=== PATIENT | female | born 1995 | race Caucasian/White ===

== ENCOUNTER 2018-09-06 02:58 | Emergency (ER) | payer SELFPAY ==
[2018-09-06] MEDS ORDERED: ALBUTEROL SO4 2.5/IPRATROPIUM 0.5 INH SOL 3 ML VIAL.NEB. NEB ONE ×4 (03:14→03:47)
[2018-09-06] MEDS ORDERED: methylPREDNISolone NA SUCC 125 MG/2 ML VIAL IVPB ONE (03:16)
[2018-09-06 03:31] VITALS: BP 127/79; PULSE 102; TEMP 98.3; BMI 26.2
--- NOTE | 2018-09-06 03:36 | PDOC ---
History of Present Illness - General Chief Complaint: Asthma Stated Complaint: ASTHMA,COUGHING,CHEST BURNING Time Seen by Provider: 09/06/18 03:14 History Source: Patient Exam Limitations: No Limitations - History of Present Illness Initial Comments: 23 yo F w a pmh of asthma presents to the ED very short of breath. She states she is having an asthma exacerbation because this is what it always feels like. She states she has been sneezing alot over the past two days and her asthma has become intolerable. She has been having difficulty breathing and shortness of breath all month because she ran out of many of her asthma medications. She usually takes advair and an inhaler which both ran out and she has not been able to refill because she does not have insurance right now. - Patient thinks she was intubated as a child but has never been to the ICU for her asthma - She endorses chest tightness. Denies abdominal pain, back pain, dysuria, frequency, urgency. PCP: None Allergies: Pollen, animal fur Social Hx: Recreational alcohol. Denies smoking anything or illicit drug usage. Past History - Past Medical History Allergies/Adverse Reactions: Allergies Allergy/AdvReac Type Severity Reaction Status Date / Time No Known Allergies Allergy Verified 09/06/18 03:09 Home Medications: Ambulatory Orders Albuterol 0.083% Nebulizer Myrtle [Ventolin 0.083%] 1 neb NEB QID PRN 03/19/12 Albuterol Sulfate Inhaler - [Ventolin HFA Inhaler -] 2 inh IH Q6H #1 inh predniSONE [Deltasone -] 40 mg PO DAILY #7 tablet 06/10/14 Albuterol 0.083% Nebulizer Myrtle [Ventolin 0.083% Nebulizer Soln -] 1 neb NEB Q4H PRN #60 vial 09/06/18 Albuterol Sulfate Inhaler - [Ventolin Hfa Inhaler -] 1 puff IH QID #1 inhaler Montelukast Sodium [Singulair] 10 mg PO DAILY #60 tablet 09/06/18 Prednisone [Deltasone] 20 mg PO BID #10 tablet 09/06/18 Anemia: No Asthma: Yes Cancer: No Cardiac Disorders: No CVA: No COPD: No CHF: No Dementia: No Diabetes: No GI Disorders: No Disorders: No HTN: No Hypercholesterolemia: No Liver Disease: No Seizures: No Thyroid Disease: Yes - Surgical History Abdominal Surgery: No Appendectomy: No Cardiac Surgery: No Cholecystectomy: No Lung Surgery: No Neurologic Surgery: No Orthopedic Surgery: No - Immunization History Immunization Up to Date: Yes - Suicide/Smoking/Psychosocial Hx Smoking Status: No Smoking History: Never smoked Years of Tobacco Use: 0 Have you smoked in the past 12 months: No Number of Cigarettes Smoked Daily: 0 Cigars Per Day: 0 Information on smoking cessation initiated: No Hx Alcohol Use: No Drug/Substance Use Hx: No Substance Use Type: None Hx Substance Use Treatment: No Review of Systems - Review of Systems Able to Perform ROS?: Yes Comments:: CONSTITUTIONAL: Absent: fever, no chills, no fatigue EYES: Absent: visual changes ENT: Absent: ear pain, no sore throat CARDIOVASCULAR: Present: Chest tightness Absent: chest pain, no palpitations RESPIRATORY: Present: cough, no SOB GI: Absent: abdominal pain, no nausea, no vomiting, no constipation, no diarrhea GENITOURINARY: Absent: dysuria, no frequency, no hematuria MUSKULOSKELETAL: Absent: back pain, no arthralgia, no myalgia SKIN: Absent: rash NEURO: Absent: headache *Physical Exam - Vital Signs Last Vital Signs Temp Pulse Resp BP Pulse Ox 98.3 F 102 H 18 127/79 98 09/06/18 03:05 09/06/18 03:05 09/06/18 03:05 09/06/18 03:05 09/06/18 03:05 - Physical Exam Comments: GENERAL: Well-appearing, well-nourished. mild distress. HEENT: Normocephalic, atraumatic. PERRL, EOM intact. CARDIOVASCULAR: Normal S1, S2. Tachycardic rate and regular rhythm. PULMONARY: Diffuse expiratory wheezes bilaterally. ABDOMEN: Soft, non-distended, non-tender. EXTREMITIES: Normal ROM in all four extremities. No gross deformities. SKIN: Warm, dry. No rash NEUROLOGICAL: No focal neurological deficits. Moderate Sedation - Procedure Monitoring Vital Signs: Procedure Monitoring Vital Signs Temperature 98.3 F 09/06/18 03:05 Pulse Rate 102 H 09/06/18 03:05 Respiratory Rate 18 09/06/18 03:05 Blood Pressure 127/79 09/06/18 03:05 O2 Sat by Pulse Oximetry (%) 98 09/06/18 03:05 ED Treatment Course - LABORATORY CBC & Chemistry Diagram: 09/06/18 03:40 09/06/18 03:40 - RADIOLOGY Radiology Studies Ordered: Category Date Time Status CHEST PA & LAT [RAD] Stat Radiology 09/06/18 03:17 Ordered Medical Decision Making - Medical Decision Making 23 yo F w a pmh of asthma presents to the ED very short of breath. She states she is having an asthma exacerbation because this is what it always feels like. DDx IBNLT: Asthma exacerbation, URI, PNA, ACS. Plan: Cbc, Cmp, duonebs, solumedrol, cxr, EKG, oxygen, peak flow, re-assess. Patient feels significantly better after steroids and nebs. Breath sounds are no CTAB Will DC patient with prescriptions for steroids, albuterol, ventolin, and singulair. *DC/Admit/Observation/Transfer Diagnosis at time of Disposition: Asthma exacerbation - Discharge Dispostion Disposition: HOME Condition at time of disposition: Improved Decision to Admit order: No - Prescriptions Prescriptions: Albuterol 0.083% Nebulizer Myrtle [Ventolin 0.083% Nebulizer Soln -] 1 neb NEB Q4H PRN #60 vial PRN Reason: Wheezing Albuterol Sulfate Inhaler - [Ventolin Hfa Inhaler -] 1 puff IH QID #1 inhaler Montelukast Sodium [Singulair] 10 mg PO DAILY #60 tablet Prednisone [Deltasone] 20 mg PO BID #10 tablet - Referrals Referrals: [facility] [place] [facility] [Provider Group] - Patient Instructions Printed Discharge Instructions: Asthma -- Adult Additional Instructions: You came into the ER with shortness of breath and difficulty breathing. You were experiencing an asthma exacerbation which was likely triggered by an upper respiratory infection. You felt better after getting nebulizers and steroids. We are sending steroids, albuterol, ventolin, and singulair to your [facility] pharmacy on [facility]. 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 Come back to the ER if your breathing becomes difficult you have severe chest pain, shortness of breath, or any other new or worsening concerns. Thank you for coming to the [facility] ER. We hope you feel better soon! Print Language: ITALIAN - Post Discharge Activity Forms/Work/School Notes: Back to Work
[2018-09-06] MEDS ORDERED: methylPREDNISolone NA SUCC 125 MG/2 ML VIAL ONE (03:44)
[2018-09-06 03:50] LABS: BASO % 1.1 % (0-2.0); EOS % 7.1 % (0-4.5); HEMOGLOBIN 13.2 GM/dL (10.7-15.3); LYMPH % 26.6 % (8-40); MCH 30.1 pg (25.7-33.7); MCHC 34.8 g/dl (32.0-36.0); MEAN CELL VOLUME 86.7 fl (80-96); MEAN PLT VOLUME 8.2 fl (7.5-11.1); MONO % 5.1 % (3.8-10.2); NEUT % 60.1 % (42.8-82.8); PLATELET COUNT 321 K/MM3 (134-434); RBC 4.38 M/mm3 (3.60-5.2); RDW 13.5 % (11.6-15.6); WHITE BLOOD COUNT 8.6 K/mm3 (4.0-10.0)
[2018-09-06 04:32] LABS: ALBUMIN 3.8 g/dl (3.4-5.0); ALK PHOS 67 U/L (45-117); ANION GAP 8 MMOL/L (8-16); BILIRUBIN,TOTAL 0.2 mg/dL (0.2-1); BLOOD UREA NITROGEN 9 mg/dL (7-18); CALCIUM 8.5 mg/dL (8.5-10.1); CHLORIDE 108 mmol/L (98-107); CO2 25 mmol/L (21-32); CREATININE 0.7 mg/dL (0.55-1.3); GLUCOSE,RANDOM 95 mg/dL (74-106); POTASSIUM 3.9 mmol/L (3.5-5.1); SGOT/AST 27 U/L (15-37); SGPT/ALT 25 U/L (13-61); SODIUM 141 mmol/L (136-145)
--- NOTE | 2018-09-06 05:07 | PDOC ---
Attending Attestation - Resident Resident Name: Christopher Thompson - ED Attending Attestation I have performed the following: I have examined & evaluated the patient, The case was reviewed & discussed with the resident, I agree w/resident's findings & plan, Exceptions are as noted - HPI HPI: 09/06/18 05:04 23 yo F wit ho asthma here with co wheezing sob. has had worsening sxs this month since she ran out of her medication one month ago. was on advair, singulair albuterol, and steroids usually on hand at home. no h/o intubation that she can remember, possible as a child. no f/c no known trigger. no f/c cough chronic. no recent icu, but has been in ed mulitlple time for asthma. - Physicial Exam PE: 09/06/18 05:06 awake alert lungs clear bilaterally normal effort. no retractions. abd soft nt nd. ext wwp no edema. no rash, skin warm and dry. - Medical Decision Making 09/06/18 05:06 differential asthma exacerbation, plan nebs steroids, reassess.
== END 2018-09-06 05:38 | disposition home or self-care (01) ==
LOC: JER 02:58
PROC: 3E0F7GC Introduction of Other Therapeutic Substance into Respiratory Tract, Via Natural or Artificial Opening (ICD-10-PCS; principal; 2018-09-06)
PROC: 3E033GC Introduction of Other Therapeutic Substance into Peripheral Vein, Percutaneous Approach (ICD-10-PCS; 2018-09-06)
DX: J45.901 Unspecified asthma with (acute) exacerbation (principal)
CPT/HCPCS: 36415; 80053; 85025; 99282-25

== ENCOUNTER 2019-09-10 17:34 | Emergency (ER) | payer OTHER ==
[2019-09-10 17:55] VITALS: BP 125/54; PULSE 85; TEMP 97.8; BMI 30.2
[2019-09-10] MEDS ORDERED: KETOROLAC TROMETHAMINE 60 MG/2 ML VIAL IM ONE (18:47)
[2019-09-10] MEDS ORDERED: METHOCARBAMOL 500 MG TABLET PO ONE (18:47)
--- NOTE | 2019-09-10 19:17 | PDOC ---
History of Present Illness - General Chief Complaint: Back Pain Stated Complaint: LOWER BACK PAIN X 7 DAYS Time Seen by Provider: 09/10/19 18:07 History Source: Patient Exam Limitations: Clinical Condition - History of Present Illness Initial Comments: 09/10/19 19:12 Patient with no significant past medical history present with complaint of one- week history of worsening lower back pain which is worse from getting up from sitting position. Patient reported injury to lower back 4 years ago when she fell off the stairs and has intermittent pain. 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 Denies numbness or tingling sensation. Denies urinary frequency, dysuria or burning with urination. LMP a week ago. Patient reported using icy hot for symptoms but did not take anything oral for pain. Denies any other symptoms Is this a multiple visit Asthma Patient?: No Timing/Duration: 1 week Past History - Past Medical History Allergies/Adverse Reactions: Allergies Allergy/AdvReac Type Severity Reaction Status Date / Time No Known Allergies Allergy Verified 09/06/18 03:09 Home Medications: Ambulatory Orders Albuterol 0.083% Nebulizer Myrtle [Ventolin 0.083%] 1 neb NEB QID PRN 03/19/12 Albuterol Sulfate Inhaler - [Ventolin HFA Inhaler -] 2 inh IH Q6H #1 inh predniSONE [Deltasone -] 40 mg PO DAILY #7 tablet 06/10/14 Albuterol 0.083% Nebulizer Myrtle [Ventolin 0.083% Nebulizer Soln -] 1 neb NEB Q4H PRN #60 vial 09/06/18 Albuterol Sulfate Inhaler - [Ventolin Hfa Inhaler -] 1 puff IH QID #1 inhaler Montelukast Sodium [Singulair] 10 mg PO DAILY #60 tablet 09/06/18 predniSONE [Deltasone] 20 mg PO BID #10 tablet 09/06/18 Methocarbamol [Robaxin -] 500 mg PO BID PRN #14 tablet 09/10/19 Methylprednisolone [Medrol Dose Sam] 4 mg PO ASDIR #21 tablet 09/10/19 Anemia: No Asthma: Yes Cancer: No Cardiac Disorders: No CVA: No COPD: No CHF: No Dementia: No Diabetes: No GI Disorders: No Disorders: No HTN: No Hypercholesterolemia: No Liver Disease: No Seizures: No Thyroid Disease: Yes (no medication) - Surgical History Abdominal Surgery: No Appendectomy: No Cardiac Surgery: No Cholecystectomy: No Lung Surgery: No Neurologic Surgery: No Orthopedic Surgery: No - Immunization History Td Vaccination: Yes TDAP Vaccination: Yes Immunization Up to Date: Yes - Psycho Social/Smoking Cessation Hx Smoking Status: No Smoking History: Never smoked Years of Tobacco Use: 0 Have you smoked in the past 12 months: No Number of Cigarettes Smoked Daily: 0 Cigars Per Day: 0 Information on smoking cessation initiated: No Hx Alcohol Use: No Drug/Substance Use Hx: No Substance Use Type: None Hx Substance Use Treatment: No Review of Systems - Review of Systems Able to Perform ROS?: Yes Is the patient limited Amharic proficient: No Constitutional: No: Fever, Malaise, Weakness HEENTM: No: Symptoms Reported, See HPI, Eye Pain, Blurred Vision, Tearing, Recent change in vision, Double Vision, Cataracts, Ear Pain, Ocular Prothesis, Ear Discharge, Nose Pain, Nose Congestion, Tinnitus, Nose Bleeding, Hearing Loss , Throat Pain, Throat Swelling, Mouth Pain, Dental Problems, Difficulty Swallowing, Mouth Swelling, Other Respiratory: No: Symptoms reported, See HPI, Cough, Orthopnea, Shortness of Breath, SOB with Exertion, SOB at Rest, Stridor, Wheezing, Productive cough, Hemoptysis, Other Cardiac (ROS): No: Symptoms Reported, See HPI, Chest Pain, Edema, Irregular Heart Rate, Lightheadedness, Palpitations, Syncope, Chest Tightness, Other ABD/GI: No: Symptoms Reported, See HPI, Nausea, Vomiting, Abdominal cramping : No: Symptoms Reported, Burning, Dysuria, Discharge, Frequency, Hematuria, Urgency Musculoskeletal: Yes: Symptoms Reported, See HPI, Back Pain (b/l lower back pain ) Integumentary: No: Symptoms Reported Neurological: No: Symptoms reported, Numbness, Paresthesia, Tingling All Other Systems: Reviewed and Negative *Physical Exam - Vital Signs Last Vital Signs Temp Pulse Resp BP Pulse Ox 97.8 F 85 18 125/54 L 96 09/10/19 17:53 09/10/19 17:53 09/10/19 17:53 09/10/19 17:53 09/10/19 17:53 - Physical Exam 09/10/19 19:15 GENERAL: Well developed, well nourished. Awake and alert in mild acute distress. PULMONARY: No evidence of respiratory distress. ABDOMINAL: Soft. Non-tender. Non-distended. No rebound or guarding. No organomegaly. Normoactive bowel sounds MUSCULOSKELETAL : Moderate tenderness over posterior paravertebral muscle lumbosacral spine of L3-S2 on bilateral sides. No bony deformities SKIN: Warm and dry. Normal capillary refill. No rashes. NEUROLOGICAL: Alert, awake, appropriate. No motor deficits in the lower extremities. Gait is normal without ataxia. PSYCHIATRIC: Cooperative. Good eye contact. Appropriate mood and affect. General Appearance: Yes: Nourished, Appropriately Dressed. No: Apparent Distress ED Treatment Course - RADIOLOGY Radiology Studies Ordered: Category Date Time Status SPINE-LUMBAR SACRAL [RAD] Stat Radiology 09/10/19 19:08 Ordered - Medications Given in the ED: ED Medications Discontinued Medications Generic Name Dose Route Start Last Admin Trade Name Freq PRN Reason Stop Dose Admin Ketorolac Tromethamine 60 mg 09/10/19 18:47 09/10/19 18:58 Toradol Injection - IM 09/10/19 18:48 60 mg ONCE ONE Administration Methocarbamol 500 mg 09/10/19 18:47 09/10/19 18:59 Robaxin - PO 09/10/19 18:48 500 mg ONCE ONE Administration Medical Decision Making - Medical Decision Making 09/10/19 19:13 Patient with no significant past medical history present with complaint of one- week history of worsening lower back pain which is worse from getting up from sitting position. Patient reported injury to lower back 4 years ago when she fell off the stairs and has intermittent pain. 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 Denies numbness or tingling sensation. Denies urinary frequency, dysuria or burning with urination. LMP a week ago. Patient reported using icy hot for symptoms but did not take anything oral for pain. Denies any other symptoms Exam significant for moderate tenderness to bilateral paravertebral muscle of lower lumbosacral of L3-S1. No midline tenderness. No radiculopathy. No CVA tenderness. Negative straight leg test. Symptoms likely back spasm from strain versus less likely urinary symptoms. Urine test ordered, UA ordered. Toradol 60 mg IM Robaxin 5 mg p.o. ordered for pain and spasm. X-ray of spinal of lumbosacral to be done if negative test 09/10/19 20:12 X-ray of lumbosacral spine shows straightening of the spine consistent with spasm. Patient stable for discharge on Medrol pack for anti-inflammatory effect and Robaxin for spasm with advised to do hot compress to back for pain with orthopedics follow-up Discharge - Discharge Information Problems reviewed: Yes Clinical Impression/Diagnosis: Back spasm Lumbago without sciatica Qualifiers: Chronicity: acute Back pain laterality: bilateral Qualified Code(s): M54.5 - Low back pain Condition: Stable Disposition: HOME - Admission No - Additional Discharge Information Prescriptions: Methocarbamol [Robaxin -] 500 mg PO BID PRN #14 tablet PRN Reason: Back Pain Methylprednisolone [Medrol Dose Sma] 4 mg PO ASDIR #21 tablet - Follow up/Referral Referrals: William Weaver MD, [facility] [Staff Physician] - - Patient Discharge Instructions Patient Printed Discharge Instructions: DI for Low Back Pain Additional Instructions: Your back pain is likely caused by muscle spasm. X-ray shows no acute pathology. Take prescribed medication as prescribed for back pain. Continue with hot compress 2-3 times a day as needed for pain. Follow-up with referred orthopedic criminal intelligence specialist if no improvement in 3 days - Post Discharge Activity
[2019-09-10 19:57] LABS: URINE APPEARANCE CLOUDY; URINE BILIRUBIN NEGATIVE (NEGATIVE); URINE COLOR YELLOW; URINE GLUCOSE (UA) NEGATIVE (NEGATIVE); URINE KETONE NEGATIVE (NEGATIVE); URINE LEUK ESTERASE NEGATIVE (NEGATIVE); URINE NITRITE NEGATIVE (NEGATIVE); URINE PROTEIN NEGATIVE (NEGATIVE); URINE UROBILINOGEN 0.2 mg/dL (0.2-1.0)
[2019-09-10] MEDS ORDERED: METHOCARBAMOL 500 MG TABLET ONE (20:18)
[2019-09-10] MEDS ORDERED: KETOROLAC TROMETHAMINE 60 MG/2 ML VIAL ONE (20:18)
== END 2019-09-10 20:29 | disposition home or self-care (01) ==
LOC: JERFT 17:34
PROC: 3E0233Z Introduction of Anti-inflammatory into Muscle, Percutaneous Approach (ICD-10-PCS; principal; 2019-09-10)
DX: M62.830 Muscle spasm of back (principal); J45.909 Unspecified asthma, uncomplicated; E07.9 Disorder of thyroid, unspecified
CPT/HCPCS: 72100-TC-FY; 81003; 84703; 99281-25

== ENCOUNTER 2021-01-26 14:44 | Emergency (ER) | payer OTHER ==
[2021-01-26 15:08] VITALS: BP 131/80; PULSE 103; TEMP 98.6; BMI 38.2
[2021-01-26] MEDS ORDERED: MAGNESIUM SULF 50% (8.12 MEQ/2 ML-1 GM VIAL) IVPB ONE (15:53)
[2021-01-26] MEDS ORDERED: ALBUTEROL SO4 2.5/IPRATROPIUM 0.5 INH SOL 3 ML VIAL.NEB. NEB ONE ×2 (15:53→15:59)
[2021-01-26] MEDS ORDERED: MAGNESIUM SULF 50% (8.12 MEQ/2 ML-1 GM VIAL) ONE (16:00)
[2021-01-26 16:26] LABS: BASO % 0.8 % (0-2.0); EOS % 3.3 % (0-4.5); HEMATOCRIT 36.2 % (32.4-45.2); HEMOGLOBIN 11.6 GM/dL (10.7-15.3); LYMPH % 18.3 % (8-40); MCH 25.7 pg (25.7-33.7); MCHC 32.2 g/dl (32.0-36.0); MEAN CELL VOLUME 79.9 fl (80-96); MEAN PLT VOLUME 8.2 fl (7.5-11.1); MONO % 4.3 % (3.8-10.2); NEUT % 73.3 % (42.8-82.8); PLATELET COUNT 365 K/MM3 (134-434); RBC 4.53 M/mm3 (3.60-5.2); RDW 15.1 % (11.6-15.6)
[2021-01-26 16:51] LABS: ALBUMIN 3.8 g/dl (3.4-5.0); CALCIUM 9.1 mg/dL (8.5-10.1)
[2021-01-26 16:55] LABS: CREATININE 0.7 mg/dL (0.55-1.3)
[2021-01-26 16:56] LABS: BILIRUBIN,TOTAL 0.3 mg/dL (0.2-1); TOT PROT 7.6 g/dl (6.4-8.2)
[2021-01-26 17:09] LABS: PROTHROMBIN TIME (PATIENT) 12.3 SEC (9.7-13.0)
== END 2021-01-26 19:39 | disposition home or self-care (01) ==
LOC: JER 14:44
PROC: 3E0F7GC Introduction of Other Therapeutic Substance into Respiratory Tract, Via Natural or Artificial Opening (ICD-10-PCS; principal; 2021-01-26)
PROC: 3E033GC Introduction of Other Therapeutic Substance into Peripheral Vein, Percutaneous Approach (ICD-10-PCS; 2021-01-26)
DX: R22.42 Localized swelling, mass and lump, left lower limb (principal); R22.41 Localized swelling, mass and lump, right lower limb; J45.909 Unspecified asthma, uncomplicated
CPT/HCPCS: 36415; 71046-TC-FY; 80053; 83735; 84439; 84443; 84703; 85025; 85379; 85610; 93970-TC; 99285-25

== ENCOUNTER 2021-09-10 19:58 | Emergency (ER) | payer OTHER ==
[2021-09-10 20:07] VITALS: BP 133/87; PULSE 124; TEMP 100.8; BMI 38.2
[2021-09-10] MEDS ORDERED: ACETAMINOPHEN 500 MG TABLET (FP) PO ONE (20:24)
[2021-09-10] MEDS ORDERED: ACETAMINOPHEN 500 MG TABLET (FP) ONE (20:24)
== END 2021-09-10 20:36 | disposition home or self-care (01) ==
LOC: FER 19:58
DX: J06.9 Acute upper respiratory infection, unspecified (principal)
CPT/HCPCS: 87804; 99283-25; C9803; U0003; U0005

== ENCOUNTER 2022-07-23 20:52 | Emergency (ER) | payer OTHER ==
[2022-07-23 21:05] VITALS: BP 116/76; PULSE 64; RESP 17; TEMP 99; BMI 36.7
[2022-07-24] MEDS ORDERED: ACETAMINOPHEN 325 MG TABLET (FP) PO ONE (00:21)
[2022-07-24] MEDS ORDERED: ALBUTEROL SO4 2.5/IPRATROPIUM 0.5 INH SOL 3 ML VIAL.NEB. NEB ONE ×3 (00:21→00:36)
[2022-07-24] MEDS ORDERED: ACETAMINOPHEN 325 MG TABLET (FP) ONE (00:36)
[2022-07-24] MEDS ORDERED: OSELTAMIVIR PHOSPHATE 75 MG CAPSULE PO ONE (01:07)
== END 2022-07-24 01:36 | disposition home or self-care (01) ==
LOC: JER 20:52
PROC: 3E0F7GC Introduction of Other Therapeutic Substance into Respiratory Tract, Via Natural or Artificial Opening (ICD-10-PCS; principal; 2022-07-23)
DX: R05.1 Acute cough (principal); M79.10 Myalgia, unspecified site; J09.X2 Influenza due to identified novel influenza A virus with other respiratory manifestations
CPT/HCPCS: 0241U-QW; 99283-25

== ENCOUNTER 2022-07-28 10:16 | Emergency (ER) | payer OTHER ==
[2022-07-28 10:58] VITALS: BP 110/80; PULSE 104; RESP 18; TEMP 97.8; BMI 35.7
[2022-07-28] MEDS ORDERED: LACTATED RINGERS SOLUTION 1000 ML INFUS.BAG IV ONE (12:14)
[2022-07-28] MEDS ORDERED: ACETAMINOPHEN 1000 MG/100 ML BAG IVPB ONE (12:14)
[2022-07-28] MEDS ORDERED: ONDANSETRON 4 MG/2 ML VIAL IVPUSH ONE (12:14)
[2022-07-28] MEDS ORDERED: FAMOTIDINE 20 MG/50 ML IVPB 20 MG/50 ML MG IVPB ONE ×2 (12:14→12:28)
[2022-07-28] MEDS ORDERED: ONDANSETRON 4 MG/2 ML VIAL ONE (12:28)
[2022-07-28] MEDS ORDERED: ACETAMINOPHEN INJECTION 100 ML IVPB ONE (12:28)
[2022-07-28 12:57] LABS: BASO % 0.7 % (0-2.0); EOS % 3.3 % (0-4.5); HEMATOCRIT 37.5 % (32.4-45.2); HEMOGLOBIN 12.3 GM/dL (10.7-15.3); LYMPH % 30.2 % (8-40); MCH 26.3 pg (25.7-33.7); MCHC 32.9 g/dl (32.0-36.0); MEAN CELL VOLUME 79.9 fl (80-96); MEAN PLT VOLUME 8.1 fl (7.5-11.1); MONO % 5.9 % (3.8-10.2); NEUT % 59.9 % (42.8-82.8); PLATELET COUNT 390 10^3/uL (134-434); RDW 14.9 % (11.6-15.6); WHITE BLOOD COUNT 6.4 K/mm3 (4.0-10.0)
[2022-07-28 13:00] LABS: INR 1.08 (0.83-1.09); PROTHROMBIN TIME (PATIENT) 12.4 SEC (9.7-13.0)
[2022-07-28 13:03] LABS: ACTIVATED PTT 27.8 SECONDS (25.2-36.5); SERUM PREGNANCY TEST NEGATIVE
[2022-07-28 13:13] LABS: ALBUMIN 3.6 g/dl (3.4-5.0); CALCIUM 8.8 mg/dL (8.5-10.1)
[2022-07-28 13:14] LABS: BLOOD UREA NITROGEN 9.3 mg/dL (7-18)
[2022-07-28 13:16] LABS: CREATININE 0.7 mg/dL (0.55-1.3)
[2022-07-28 13:18] LABS: BILIRUBIN,TOTAL 0.2 mg/dL (0.2-1); TOT PROT 7.4 g/dl (6.4-8.2)
[2022-07-28 13:20] LABS: PH,URINE 5.5 (5.0-8.0); URINE APPEARANCE CLEAR; URINE BILIRUBIN NEGATIVE (NEGATIVE); URINE COLOR YELLOW; URINE GLUCOSE (UA) NEGATIVE (NEGATIVE); URINE KETONE TRACE (NEGATIVE); URINE LEUK ESTERASE NEGATIVE (NEGATIVE); URINE NITRITE NEGATIVE (NEGATIVE); URINE PROTEIN TRACE (NEGATIVE)
== END 2022-07-28 14:51 | disposition home or self-care (01) ==
LOC: JER 10:16
PROC: 3E033GC Introduction of Other Therapeutic Substance into Peripheral Vein, Percutaneous Approach (ICD-10-PCS; principal; 2022-07-28)
DX: K52.9 Noninfective gastroenteritis and colitis, unspecified (principal)
CPT/HCPCS: 36415; 74177-TC; 80053; 81003; 82272; 84703; 85025; 85610; 85730; 86850; 86900; 86901; 99285-25; Q9967

== ENCOUNTER 2022-07-29 13:31 | Emergency (ER) | payer OTHER ==
[2022-07-29 13:36] VITALS: TEMP 97.6; BMI 35.7
[2022-07-29] MEDS ORDERED: ONDANSETRON 4 MG/2 ML VIAL IVPUSH ONE (14:06)
[2022-07-29] MEDS ORDERED: LACTATED RINGERS SOLUTION 1000 ML INFUS.BAG IV ONE (14:06)
[2022-07-29] MEDS ORDERED: ONDANSETRON 4 MG/2 ML VIAL ONE (14:12)
[2022-07-29 14:43] LABS: BASO % 0.9 % (0-2.0); EOS % 3.2 % (0-4.5); HEMATOCRIT 33.7 % (32.4-45.2); HEMOGLOBIN 11.3 GM/dL (10.7-15.3); LYMPH % 32.9 % (8-40); MCH 26.7 pg (25.7-33.7); MCHC 33.6 g/dl (32.0-36.0); MEAN CELL VOLUME 79.6 fl (80-96); MEAN PLT VOLUME 7.9 fl (7.5-11.1); MONO % 6.7 % (3.8-10.2); NEUT % 56.3 % (42.8-82.8); PLATELET COUNT 333 10^3/uL (134-434); RBC 4.23 M/mm3 (3.60-5.2); RDW 14.6 % (11.6-15.6); WHITE BLOOD COUNT 6.4 K/mm3 (4.0-10.0)
[2022-07-29 15:04] LABS: CHLORIDE 107 mmol/L (98-107); SODIUM 140 mmol/L (136-145)
[2022-07-29 15:07] LABS: CALCIUM 8.6 mg/dL (8.5-10.1)
[2022-07-29 15:08] LABS: ALBUMIN 3.4 g/dl (3.4-5.0); ANION GAP 3 MMOL/L (8-16); BLOOD UREA NITROGEN 7.6 mg/dL (7-18); CO2 30 mmol/L (21-32); GLUCOSE,RANDOM 88 mg/dL (74-106)
[2022-07-29 15:10] LABS: SGPT/ALT 17 U/L (13-61)
[2022-07-29 15:11] LABS: CREATININE 0.7 mg/dL (0.55-1.3); SGOT/AST 12 U/L (15-37)
[2022-07-29 15:12] LABS: TOT PROT 6.8 g/dl (6.4-8.2)
[2022-07-29 15:13] LABS: ALK PHOS 61 U/L (45-117); BILIRUBIN,TOTAL 0.2 mg/dL (0.2-1)
[2022-07-29 15:25] LABS: ERYTHROCYTE SEDIMENTATION RATE 16 mm/hr (0-20)
[2022-07-29 16:23] VITALS: BP 130/68; PULSE 82; RESP 18
== END 2022-07-29 16:23 | disposition home or self-care (01) ==
LOC: JER 13:31
PROC: 3E033GC Introduction of Other Therapeutic Substance into Peripheral Vein, Percutaneous Approach (ICD-10-PCS; principal; 2022-07-29)
DX: R42 Dizziness and giddiness (principal)
CPT/HCPCS: 36415; 80053; 83993; 85025; 85651; 86140; 87045; 87046; 87324; 87449; 99284-25

== ENCOUNTER 2022-08-12 05:54 | Day surgery (SDC) | payer OTHER ==
[2022-08-11 15:26] VITALS: BMI 35.5
[2022-08-12 11:51] VITALS: TEMP 97.3
[2022-08-12 12:20] VITALS: BP 105/57; RESP 14
[2022-08-12 13:20] VITALS: PULSE 68
== END 2022-08-12 12:38 | disposition home or self-care (01) ==
LOC: JASU-ENDO 05:54
PROVIDERS: ATTEND Student in an Organized Health Care Education/Training Program
PROC: 0W3P8ZZ Control Bleeding in Gastrointestinal Tract, Via Natural or Artificial Opening Endoscopic (ICD-10-PCS; 2022-08-12)
PROC: 0DBB8ZX Excision of Ileum, Via Natural or Artificial Opening Endoscopic, Diagnostic (ICD-10-PCS; principal; 2022-08-12 10:30)
DX: K63.81 Dieulafoy lesion of intestine (principal); K52.9 Noninfective gastroenteritis and colitis, unspecified
CPT/HCPCS: 88305-TC

== ENCOUNTER 2022-10-14 05:01 | Day surgery (SDC) | payer OTHER ==
[2022-10-09 14:56] VITALS: BMI 27.5
[2022-10-14 11:05] VITALS: RESP 18
[2022-10-14 12:30] VITALS: BP 99/69; PULSE 79
[2022-10-14 14:30] VITALS: TEMP 97.5
== END 2022-10-14 12:50 | disposition home or self-care (01) ==
LOC: JASU-ENDO 05:01
PROVIDERS: ATTEND Student in an Organized Health Care Education/Training Program
PROC: 0DJD8ZZ Inspection of Lower Intestinal Tract, Via Natural or Artificial Opening Endoscopic (ICD-10-PCS; principal; 2022-10-14 11:30)
DX: K92.1 Melena (principal)
CPT/HCPCS: 81025

== ENCOUNTER 2023-04-19 13:07 | Emergency (ER) | payer OTHER ==
[2023-04-19 13:16] VITALS: BP 114/71; PULSE 93; RESP 16; TEMP 98.5; BMI 36.1
[2023-04-19] MEDS ORDERED: ACETAMINOPHEN 500 MG TABLET (FP) PO ONE (14:33)
[2023-04-19] MEDS ORDERED: LIDOCAINE 5% TOPICAL PATCH TP ONE (14:33)
[2023-04-19] MEDS ORDERED: KETOROLAC TROMETHAMINE 30 MG/1 ML VIAL IM ONE (14:33)
[2023-04-19] MEDS ORDERED: CYCLOBENZAPRINE HCL 10 MG TABLET (FP) PO ONE (14:35)
[2023-04-19] MEDS ORDERED: CYCLOBENZAPRINE HCL 10 MG TABLET (FP) ONE (15:18)
[2023-04-19] MEDS ORDERED: LIDOCAINE 5% TOPICAL PATCH ONE (15:18)
[2023-04-19] MEDS ORDERED: ACETAMINOPHEN 500 MG TABLET (FP) ONE (15:18)
[2023-04-19] MEDS ORDERED: KETOROLAC TROMETHAMINE 30 MG/1 ML VIAL ONE (15:18)
[2023-04-19] MEDS ORDERED: LIDOCAINE PATCH REMOVAL MC SCH (22:00)
== END 2023-04-19 17:18 | disposition home or self-care (01) ==
LOC: JERFT 13:07
PROC: 3E023GC Introduction of Other Therapeutic Substance into Muscle, Percutaneous Approach (ICD-10-PCS; principal; 2023-04-19)
DX: M54.59 Other low back pain (principal)
CPT/HCPCS: 84703; 99284-25

== ENCOUNTER 2023-04-27 12:54 | Emergency (ER) | payer OTHER ==
[2023-04-27 13:09] VITALS: BP 115/78; PULSE 92; RESP 19; TEMP 98; BMI 38.0
[2023-04-27 14:09] LABS: PH,URINE 5.5 (5.0-8.0); URINE APPEARANCE CLEAR; URINE BILIRUBIN NEGATIVE (NEGATIVE); URINE COLOR YELLOW; URINE GLUCOSE (UA) NEGATIVE (NEGATIVE); URINE KETONE NEGATIVE (NEGATIVE); URINE LEUK ESTERASE NEGATIVE (NEGATIVE); URINE NITRITE NEGATIVE (NEGATIVE); URINE PROTEIN NEGATIVE (NEGATIVE); URINE UROBILINOGEN 0.2 mg/dL (0.2-1.0)
[2023-04-27 14:12] LABS: HCG,QUALITATIVE URINE Negative
[2023-04-27] MEDS ORDERED: predniSONE 20 MG TABLET (UD) PO ONE (14:12)
[2023-04-27] MEDS ORDERED: predniSONE 20 MG TABLET (UD) ONE (14:14)
== END 2023-04-27 15:47 | disposition home or self-care (01) ==
LOC: JERFT 12:54
DX: M54.40 Lumbago with sciatica, unspecified side (principal); M51.26 Other intervertebral disc displacement, lumbar region; M62.830 Muscle spasm of back
CPT/HCPCS: 72131-TC; 81003; 84703; 87086; 99284-25